=== PATIENT | male | born 1955 | race Caucasian/White ===

== ENCOUNTER 2020-02-22 10:18 | Emergency (ER) | payer OTHER ==
[~2020-02-22] VITALS: Ht 175.3 cm; Wt 90.9 kg
--- NOTE | 2020-02-22 10:35 | PHYS DOC ---
General Adult EDM: Chief Complaint: HEAD INJURY/TRAUMA HPI: HPI: 64-year-old male with significant history of hypertension, diabetes, who presents for evaluation of head injury, status post mechanical fall on a loading dock. The patient accidentally fell right his right leg down a gap between the edge of a truck and the loading cock. Struck his head, no LOC. No AC use. Sustained superficial abrasion to the nasal bridge, as well as the right anterior thigh. The patient was ambulatory thereafter. Review of Systems: Review of Systems: Gen: No fever, chills. Eyes: No blurred vision, diplopia. 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 ENT: No epistaxis. Reports facial pain. CV: No CP, syncope. Resp. No SOB, cough. GI: No abd pain, N/V. : No perineal pain, hematuria. Neuro: No dizziness, weakness. Reports head pain. MSK: No back pain. Reports bilateral shoulder pain. Skin: Reports abrasions. Heart Score: Risk Factors: Risk Factors: DM, Current or recent (<one month) smoker, HTN, HLP, family history of CAD, obesity. Risk Scores: Score 0 - 3: 2.5% MACE over next 6 weeks - Discharge Home Score 4 - 6: 20.3% MACE over next 6 weeks - Admit for Clinical Observation Score 7 - 10: 72.7% MACE over next 6 weeks - Early Invasive Strategies Physical Exam: PE: Gen: NAD. Well nourished. Head: NC/AT. Eyes: No scleral icterus. No conjunctival injection. PERRL. ENT: MMM. Posterior OP clear. No epistaxis or septal hematoma. 0.5 cm very superficial non-gaping laceration to the right nasal bridge. Neck: Supple. NT. CV: RRR. Peripheral pulses intact. Resp: CTAB. Chest: No anterior chest wall TTP. Symmetric chest rise. Abd: Soft. NT. ND. MSK: No peripheral cyanosis. No edema. Abrasion without laceration of the right anterior mid thigh. Remainder of extremities atraumatic. Back: No midline spinal TTP or stepoffs. Neuro: A&Ox3. Strength & sensation grossly intact throughout. GCS 15. Skin. Warm. Dry. Psych: Appropriate mood & affect. EKG: EKG: [] Radiology/Procedures: Radiology/Procedures: CHEST AP ONLY Clinical History: Reason: Fall, TRAUMA / Spl. Instructions: / History: Technique: AP view of the chest was obtained at 02/22/2020 10:32 AM. Comparison: None. Findings: The cardiomediastinal silhouette is normal. The pulmonary vasculature is normal. The lungs and pleural margins are clear. Impression: No evidence of an acute cardiopulmonary process. Electronically signed by: Rayray Sotelo III, MD (02/22/2020 11:01 AM) [id number] Examination: CT MAXILLOFACIAL WO CONTRAST, CT HEAD AND CERVICAL SPINE WO History: fall /pain Comparison/Correlation: None Findings: Axial images of the head, maxillofacial structures, and cervical spine were obtained without contrast. Sagittal and coronal reformatted images were provided. Mild atrophy is present. No intracranial hemorrhage, midline shift, or mass effect. 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 Right globe is unremarkable. Left nasal bone fracture is present without significant soft tissue swelling. This may represent an old fracture. Small maxillary sinus mucous retention cysts are present. The atlantoaxial joint has mild degenerative remodeling. Alignment of the cervical spine is normal. Moderate disc space narrowing at C5-6 is present. Moderate to severe disc space narrowing from C6 to T1 is present. Bony encroachment on the neural foramina is also uncovertebral joint degenerative change is seen at C5-6 in particular bilaterally. This is also evident at the left C4-5 level. Bony encroachment on the neural foramina at C7-T1 is also present and of moderate extent. Concentric disc bulge at C5-6 and C6-C7 noted. Soft tissues of the cervical spine are unremarkable. Impression: No intracranial hemorrhage. Left nasal bone fracture without soft tissue swelling. This is probably old. Correlate with symptoms. Degenerative changes of the cervical spine. No malalignment or fracture. PQRS Compliance Statement: One or more of the following individualized dose reduction techniques were utilized for this examination: 1. Automated exposure control 2. Adjustment of the mA and/or kV according to patient size 3. Use of iterative reconstruction technique Electronically signed by: Lorenzo Shane MD (02/22/2020 11:17 AM) [id number] Course & Med Decision Making: Course & Med Decision Making Pertinent Labs and Imaging studies reviewed. (See chart for details) In summary, 64-year-old male who presents with mechanical fall resulting in head injury, nasal bridge abrasion on the right, abrasion right anterior thigh. The patient is ambulatory, with no clinical suspicion for l femur fracture. CT head negative for ICH. Cervical spine CT negative for acute traumatic pathology. CT maxillofacial with old left-sided nasal fracture, with the patient recalling 1 prior nasal injury. The patient's right-sided nasal bridge superficial laceration was repaired with Dermabond. Tetanus updated. Will be discharged home with outpatient follow-up. Prescription for Flexeril. Return precautions given. Dragon Disclaimer: Dragon Disclaimer: This electronic medical record was generated, in whole or in part, using a voice recognition dictation system. Departure Departure Impression: Primary Impression: Head injury due to trauma Additional Impressions: Nasal laceration Abrasion Disposition: 01 HOME, SELF-CARE Condition: STABLE Referrals: MP BEJARANO (PCP) Patient Instructions: Head Injury, Adult, [id number] Additional Instructions: Your nasal bridge laceration was repaired with tissue adhesive (no stitches to have removed). Take the prescribed medication as needed. Scripts Cyclobenzaprine Hcl (CYCLOBENZAPRINE HCL) 10 Mg Tablet 1 TAB PO TID, #21 TAB Prov: OSORIO QUEVEDO DO 02/22/20 Justicifation of Admission Dx: Justifications for Admission: Justification of Admission Dx: N/A OSORIO QUEVEDO DO Feb 22, 2020 10:35
[2020-02-22] MEDS ORDERED: HYDR25TA PO (10:38)
[2020-02-22] MEDS ORDERED: PRAV10TA2 PO (10:38)
[2020-02-22] MEDS ORDERED: LISI-338 PO (10:38)
[2020-02-22] MEDS ORDERED: FLUO20CA20 PO (10:38)
[2020-02-22] MEDS ORDERED: BUSP5TAB PO (10:38)
[2020-02-22] MEDS ORDERED: METF500T16 PO (10:38)
[2020-02-22] MEDS ORDERED: ASPI-630 PO (10:38)
--- NOTE | 2020-02-22 11:04 | RAD ---
CHEST AP ONLY Clinical History: Reason: Fall, TRAUMA / Spl. Instructions: / History: Technique: AP view of the chest was obtained at 02/22/2020 10:32 AM. Comparison: None. Findings: The cardiomediastinal silhouette is normal. The pulmonary vasculature is normal. The lungs and pleural margins are clear. Impression: No evidence of an acute cardiopulmonary process. Electronically signed by: Rayray Sotelo III, MD (02/22/2020 11:01 AM) [id number]
[2020-02-22] MEDS ORDERED: fentaNYL PF VIAL 100 MCG/2 ML VIAL IVP ONE (11:15)
--- NOTE | 2020-02-22 11:20 | RAD ---
Examination: CT MAXILLOFACIAL WO CONTRAST, CT HEAD AND CERVICAL SPINE WO History: fall /pain Comparison/Correlation: None Findings: Axial images of the head, maxillofacial structures, and cervical spine were obtained without contrast. Sagittal and coronal reformatted images were provided. Mild atrophy is present. No intracranial hemorrhage, midline shift, or mass effect. 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 Right globe is unremarkable. Left nasal bone fracture is present without significant soft tissue swelling. This may represent an old fracture. Small maxillary sinus mucous retention cysts are present. The atlantoaxial joint has mild degenerative remodeling. Alignment of the cervical spine is normal. Moderate disc space narrowing at C5-6 is present. Moderate to severe disc space narrowing from C6 to T1 is present. Bony encroachment on the neural foramina is also uncovertebral joint degenerative change is seen at C5-6 in particular bilaterally. This is also evident at the left C4-5 level. Bony encroachment on the neural foramina at C7-T1 is also present and of moderate extent. Concentric disc bulge at C5-6 and C6-C7 noted. Soft tissues of the cervical spine are unremarkable. Impression: No intracranial hemorrhage. Left nasal bone fracture without soft tissue swelling. This is probably old. Correlate with symptoms. Degenerative changes of the cervical spine. No malalignment or fracture. PQRS Compliance Statement: One or more of the following individualized dose reduction techniques were utilized for this examination: 1. Automated exposure control 2. Adjustment of the mA and/or kV according to patient size 3. Use of iterative reconstruction technique Electronically signed by: Lorenzo Shane MD (02/22/2020 11:17 AM) [id number]
[2020-02-22] MEDS ORDERED: CYCL10TA2 PO (11:35)
[2020-02-22 11:40] VITALS: BP 113/68
[2020-02-22] MEDS ORDERED: DIPH,PERTUSS(ACELL),TET VAC/PF 0.5 ML SYRINGE. VAX IM ONE (12:00)
== END 2020-02-22 11:54 | disposition home or self-care (01) ==
LOC: ER 10:18
DX: S01.21XA Laceration without foreign body of nose, initial encounter (principal); R20.2 Paresthesia of skin; I10 Essential (primary) hypertension; E11.9 Type 2 diabetes mellitus without complications; W18.39XA Other fall on same level, initial encounter; Y93.89 Activity, other specified; Y92.89 Other specified places as the place of occurrence of the external cause; Y99.8 Other external cause status
CPT/HCPCS: 12011; 70450; 70486; 71045; 72125; 90471; 90715; 96374; 99285; J3010

== ENCOUNTER → 2021-03-15 | Outpatient (CLI) | payer BC ==
[~2021-03-15] MED LIST: ASPI-630 PO; BUSP5TAB PO; CYCL10TA2 PO; FLUO20CA20 PO; HYDR25TA PO; LISI-517 PO; METF500T16 PO; PRAV10TA2 PO; REGADENOSON 0.4 MG/5 ML DISP.SYRIN. IV ONE
--- NOTE | 2021-03-15 10:55 | CARD ---
MR#: [id number] Date of Study: 03/15/2021 Ordering Physician: COREY SENIOR, Referring Physician: Alessio SALCEDO: Rayray Mccoy [facility] APPROVED REPORT EXAM: Two-dimensional and M-mode echocardiogram with Doppler and color Doppler. Other Information Quality : GoodHR: 65bpm Rhythm : NSR INDICATION Abnormal ECG RISK FACTORS Hypertension Hyperlipidemia Diabetes 2D DIMENSIONS Left Atrium(2D)3.7 (1.6-4.0cm)IVSd0.8 (0.7-1.1cm) Aortic Root(2D)3.6 (2.0-3.7cm)LVDd5.0 (3.9-5.9cm) LVOT Diameter2.0 (1.8-2.4cm)PWd0.9 (0.7-1.1cm) LVDs2.9 (2.5-4.0cm)FS (%) 41.6 % SV84.6 mlLVEF(%)72.4 (>50%) Aortic Valve AoV Peak Ian.109.4cm/sAoV VTI21.9cm AO Peak GR.4.8mmHgLVOT Peak Ian.117.7cm/s AO Mean GR.2mmHgAVA (VMAX)3.52cm2 AI P 1/2 [id number] Mitral Valve MV E Gedwypze29.1cm/sMV E Peak Gr.2mmHg MV DECEL [id number] A Vdovdbph24.9cm/s MV E Mean Gr.1mmHgE/A Ratio1.1 Pulmonary Valve PV Peak Vzdfsbcu85.1cm/s Tricuspid Valve TR P. Oufxnjdm452zs/sTR Peak Gr.22mmHg Pulmonary Vein S1 Lvnfkzwq56.0cm/sD2 Bztkfnzy50.4cm/s LEFT VENTRICLE The left ventricle is normal size. There is normal left ventricular wall thickness. The left ventricu lar systolic function is normal. The ejection fraction is estimated at 65-70%. There is normal LV seg mental wall motion. The left ventricular diastolic function and filling is normal for age. No left ve ntricle thrombus noted on this study. There is no ventricular septal defect visualized. There is no l eft ventricular aneurysm. There is no mass noted in the left ventricle. RIGHT VENTRICLE The right ventricle is normal size. There is normal right ventricular wall thickness. The right ventr icular systolic function is normal. ATRIA The left atrium size is normal. The right atrium size is normal. The interatrial septum is intact wit h no evidence for an atrial septal defect or patent foramen ovale as noted on 2-D or Doppler imaging. AORTIC VALVE The aortic valve is mildly sclerotic. The aortic valve is trileaflet. Doppler and Color Flow revealed trace aortic regurgitation. There is no significant aortic valvular stenosis. There is no aortic miles vular vegetation. MITRAL VALVE The mitral valve is normal in structure and function. There is no evidence of mitral valve prolapse. There is no mitral valve stenosis. Doppler and Color-flow revealed trace mitral regurgitation. TRICUSPID VALVE The tricuspid valve is normal in structure and function. Doppler and Color Flow revealed trace to mil d tricuspid regurgitation. The PA pressure was estimated at 26 mmHg. There is no tricuspid valve prol apse or vegetation. There is no tricuspid valve stenosis. PULMONIC VALVE The pulmonary valve is normal in structure and function. Doppler and Color Flow revealed no pulmonic valvular regurgitation. There is no pulmonic valvular stenosis. GREAT VESSELS The aortic root is normal in size. The ascending aorta is normal in size. The pulmonary artery is nor mal. The IVC is normal in size and collapses >50% with inspiration. PERICARDIAL EFFUSION There is no pleural effusion. There is no evidence of significant pericardial effusion. Critical Notification Critical Value: No <Conclusion> The left ventricular systolic function is normal. The ejection fraction is estimated at 65-70%. There is normal LV segmental wall motion. Trace mitral regurgitation. Trace to mild tricuspid regurgitation. The PA pressure was estimated at 26 mmHg. There is no evidence of significant pericardial effusion. Signed by : Corey Senior, Electronically Approved : 03/15/2021 10:54:32
--- NOTE | 2021-03-15 14:05 | RAD ---
MR#: [id number] Date of Study: 03/15/2021 Ordering Physician: COREY MUNGUIA Referring Physician: MARIA LUISA SALCEDO Tech: MENEAKSHI Mcneill APPROVED REPORT Test Type: Pharmacological Stress Nurse/Tech: Antony Harrington RN Test Indications: Abnormal EKG Cardiac History: HTN, See EMR. Medications: ASA, See EMR. Medical History: DM, X-Smoker=Quit 30yrs ago, See EMR. Resting ECG: SR Resting Heart Rate: 60 bpm Resting Blood Pressure: 113/64mmHg Pretest Chest Pain: No chest pain Nurse/Tech Notes Lungs CTA, Heart tones regular. Consent: The procedure was explained to the patient in lay terms. Informed consent was witnessed. Cesar eout was entered into [employer]. History and Stress Test performed by RT Josefa (R) (N) Pharm. Details Pharmacologic stress testing was performed using 0.4mg per 5ml of regadenoson given intravenously ove r 7-10 seconds. Stress Symptoms No chest pain or symptoms. POST EXERCISE Reason for Termination: Infusion complete Max HR: 82 bpm Max Blood Pressure: 115/64mmHg Blood Pressure response to exercise: Normal blood pressure response during stress. Heart Rate response to exercise: WNL Chest Pain: No. Arrhythmia: No. ST Change: No. INTERPRETATION Stress EKG Conclusion: Baseline EKG showed sinus rhythm. No ischemic changes at peak stress. No arr hythmias. Imaging Protocol IMAGE PROTOCOL: Rest Tc-99m/stress Tc-99m 1 day Rest: Stress: Viability: Radiopharm.Tc99m DyvqpgusaHz31x Sestamibi [id number] 33mCi Duration 15min. 13min. Img Date 03/15/2021 03/15/2021 Inj-Img Mneu59swn. 60min. Rest Admin Site:IV - Right AntecubitalAdministrator:MEENAKSHI Mcneill Stress Admin Site: IV - Right AntecubitalAdministrator: RT Josefa (R)(N) STRESS DATA End Diast. Vol.100.0mlLVEDV index BSA50.0ml End Syst. Vol.30.0mlLVESV index BSA15.0ml Myocardial Hvut486.0gEject. Rfriymgw07.0% Stress Scores Regional WT0.00Summed WT0.00 Regional WM0.00Summed WM0.00 Study quality was good. Left Ventricular size was Normal at Rest and Stress. Lung uptake was . Left Ventricular ejection fraction is 70%. The rest and stress images show normal perfusion, normal contraction and thickening. LV Perf. Quant 17 Seg. SSS0.00 17 Seg. SRS3.00 17 Seg. SDS0.00 Stress Defect Extent (% LAD)0.00Rest Defect Extent (% LAD)1.30Rev. Defect Extent (% LAD)0.00 Stress Defect Extent (% LCX) 1.30Rest Defect Extent (% LCX)5.00Rev. Defect Extent (% LCX)0.00 Stress Defect Extent (% RCA)0.00Rest Defect Extent (% RCA)0.00Rev. Defect Extent (% RCA)0.00 Stress Defect Extent (% PETER)1.30Rest Defect Extent (% PETER)3.50Rev. Defect Extent (% PETER)0.70 Conclusion 1. Regadenoson cardioisotope stress test did not show any evidence of ischemia or infarct. 2. Normal left ventricular systolic function with ejection fraction calculated at 70%. 3. Low risk for cardiac events. Signed by : Corey Munguia, Electronically Approved : 03/15/2021 14:05:29
== END ==
LOC: NM 08:01
PROVIDERS: ATTEND Internal Medicine Cardiovascular Disease
DX: I36.1 Nonrheumatic tricuspid (valve) insufficiency (principal); R94.31 Abnormal electrocardiogram [ECG] [EKG]
CPT/HCPCS: 78452; 93017; 93306; A9500; J2785